=== PATIENT | female | born 1990 | race Caucasian/White ===

== ENCOUNTER 2017-05-17 15:21 | Emergency (ER) | payer SELFPAY ==
[~2017-05-17] VITALS: Ht 160 cm; Wt 70.0 kg
[~2017-05-17 15:21] MED LIST: BIRTHCONTROL; CEPHALEXIN500 MG OR; CIPROFLOXACN500 MG PO; LORTAB5 OR; PYRIDIUM200 MG PO; TRAMADOL HCL50 MG PO
[2017-05-17] MEDS ORDERED: TRILEPTAL300 MG PO (15:29)
[2017-05-17] MEDS ORDERED: AMOXICILLIN500 M2 PO (16:47)
[2017-05-17] MEDS ORDERED: NAPROSYN500 MG PO (16:47)
[2017-05-17 17:05] VITALS: BP 128/86
== END 2017-05-17 17:05 | disposition home or self-care (01) | DRG 866 ==
LOC: ED 15:21
DX: B34.9 Viral infection, unspecified (principal); J02.9 Acute pharyngitis, unspecified; R50.9 Fever, unspecified; R11.0 Nausea

== ENCOUNTER 2019-06-13 15:51 | Emergency (ER) | payer BC ==
[~2019-06-13] VITALS: Ht 160 cm; Wt 87.0 kg
[~2019-06-13 15:51] MED LIST changes: +AMOXICILLIN500 M2 PO; +NAPROSYN500 MG PO; +TRILEPTAL300 MG PO
[2019-06-13] MEDS ORDERED: ULTRAM50 M1 PO (16:58)
[2019-06-13] MEDS ORDERED: AMOXICILLIN500 MG PO (16:58)
[2019-06-13 17:05] VITALS: BP 157/89
== END 2019-06-13 17:05 | disposition home or self-care (01) | DRG 159 ==
LOC: ED 15:51
DX: K04.7 Periapical abscess without sinus (principal)

== ENCOUNTER 2020-10-21 | Emergency (ER) | payer BC ==
[~2020-10-21] MED LIST changes: +AMOXICILLIN500 MG PO; +ULTRAM50 M1 PO
[2020-10-21] MEDS ORDERED: FLONASE AL50 MCG/ACT (12:40)
[2020-10-21] MEDS ORDERED: ZPAK PO (12:40)
== END 2020-10-21 12:54 | disposition home or self-care (01) | DRG 153 ==
DX: J02.9 Acute pharyngitis, unspecified (principal); R09.82 Postnasal drip; Z20.822 Contact with and (suspected) exposure to COVID-19